=== PATIENT | female | born 1995 | race Caucasian/White ===

== ENCOUNTER 2024-01-06 16:33 | Outpatient (CLI) | payer BC ==
[2024-01-06 17:32] LABS: BASOPHILS # (AUTO) 0.1 X10'3 (0-0.2); BASOPHILS % (AUTO) 0.5 % (0-1); EOSINOPHILS # (AUTO) 0.1 X10'3 (0-0.9); EOSINOPHILS % (AUTO) 0.7 % (0-6); HEMATOCRIT 44.1 % (35.0-45.0); HEMOGLOBIN 15.1 g/dl (12.0-16.0); LYMPHOCYTES # (AUTO) 3.2 X10'3 (1.1-4.8); LYMPHOCYTES % (AUTO) 22.5 % (21-51); MEAN CORPUSCULAR HEMOGLOBIN 32.3 PG (27.0-31.0); MEAN CORPUSCULAR HGB CONC 34.3 g/dL (33.0-36.5); MEAN CORPUSCULAR VOLUME 94.1 FL (78-98); MEAN PLATELET VOLUME 8.8 FL (7.4-10.4); MONOCYTES # (AUTO) 0.9 X10'3 (0-0.9); NEUTROPHILS # (AUTO) 9.9 X10'3 (1.8-7.7); NEUTROPHILS % (AUTO) 70.3 % (42-75); PLATELET COUNT 261 X10'3 (140-440); RED BLOOD COUNT 4.69 X10'6 (4.20-5.60); RED CELL DISTRIBUTION WIDTH 13.8 % (11.5-14.5); WHITE BLOOD COUNT 14.1 X10'3 (4.5-11.0)
[2024-01-06 17:37] LABS: HEMOGLOBIN A1C 5.4 % (4.5-6.2)
[2024-01-06 17:55] LABS: ALANINE AMINOTRANSFERASE 30 U/L (12-78); ALBUMIN 3.7 G/DL (3.4-5.0); ALKALINE PHOSPHATASE 80 IU/L (46-116); ANION GAP 7 (8-16); ASPARTATE AMINO TRANSFERASE 16 U/L (10-37); BILIRUBIN,TOTAL 0.5 MG/DL (0.1-1.0); BLOOD UREA NITROGEN 12 MG/DL (7-18); CALCIUM 8.8 MG/DL (8.5-10.1); CHLORIDE 102 MMOL/L (99-107); CHOL/HDL RATIO 5.7 (0.00-4.99); CHOLESTEROL 263 MG/DL (0-200); CREATININE 0.86 MG/DL (0.40-0.90); FREE T4 (FREE THYROXINE) 0.79 NG/DL (0.73-1.40); GLUCOSE 93 MG/DL (70-104); HDL CHOLESTEROL 46 MG/DL (35-60); LDL CHOLESTEROL 182 MG/DL (50-100); POTASSIUM 4.5 MMOL/L (3.5-5.1); SODIUM 137 MMOL/L (135-145); THYROID STIMULATING HORMONE 1.59 ulU/ml (0.34-4.50); TOTAL CARBON DIOXIDE 28.3 MMOL/L (24-32); TOTAL PROTEIN 7.3 G/DL (6.4-8.2); TRIGLYCERIDES 136 MG/DL (20-135); eGFR 78 ML/MIN
== END 2024-01-06 23:59 | disposition home or self-care (01) ==
LOC: RAD 16:33
PROVIDERS: ATTEND Nurse Practitioner
DX: Z13.220 Encounter for screening for lipoid disorders (principal); R53.83 Other fatigue; R73.9 Hyperglycemia, unspecified; E07.9 Disorder of thyroid, unspecified; M79.645 Pain in left finger(s)
CPT/HCPCS: 36415; 73130; 80053; 80061; 83036; 84439; 84443; 85025

== ENCOUNTER 2024-06-05 21:08 | Emergency (ER) | payer BC ==
[~2024-06-05] VITALS: Ht 154.9 cm; Wt 67.3 kg
[2024-06-05 21:37] LABS: URINE HCG NEGATIVE (NEG)
[2024-06-05 21:43] LABS: BILIRUBIN,URINE NEGATIVE (Neg); CLARITY,URINE CLEAR (Clear); COLOR,URINE YELLOW (Yellow); GLUCOSE, URINE NEGATIVE (Neg); KETONES,URINE NEGATIVE (Neg); LEUKOCYTE ESTERASE ,URINE NEGATIVE (Neg); NITRITES, URINE NEGATIVE (Neg); OCCULT BLOOD,URINE NEGATIVE (Neg); PROTEIN,URINE NEGATIVE (Neg); UROBILINOGEN,URINE 0.2 E.U/dL (0.2-1.0)
[2024-06-05 21:46] LABS: BASOPHILS # (AUTO) 0.1 X10'3 (0-0.2); BASOPHILS % (AUTO) 0.7 % (0-1); EOSINOPHILS # (AUTO) 0.1 X10'3 (0-0.9); EOSINOPHILS % (AUTO) 1.3 % (0-6); HEMATOCRIT 42.8 % (35.0-45.0); HEMOGLOBIN 14.7 g/dl (12.0-16.0); LYMPHOCYTES # (AUTO) 3.8 X10'3 (1.1-4.8); LYMPHOCYTES % (AUTO) 38.9 % (21-51); MEAN CORPUSCULAR HEMOGLOBIN 31.8 PG (27.0-31.0); MEAN CORPUSCULAR HGB CONC 34.4 g/dL (33.0-36.5); MEAN CORPUSCULAR VOLUME 92.7 FL (78-98); MONOCYTES # (AUTO) 0.8 X10'3 (0-0.9); MONOCYTES % (AUTO) 8.3 % (2-12); NEUTROPHILS # (AUTO) 4.9 X10'3 (1.8-7.7); NEUTROPHILS % (AUTO) 50.8 % (42-75); PLATELET COUNT 233 X10'3 (140-440); RED BLOOD COUNT 4.61 X10'6 (4.20-5.60); WHITE BLOOD COUNT 9.7 X10'3 (4.5-11.0)
[2024-06-05 21:48] LABS: UA COLLECTION TYPE CLN CATCH MIDSTREAM
[2024-06-05 22:30] LABS: ALANINE AMINOTRANSFERASE 22 U/L (12-78); ALBUMIN 3.6 G/DL (3.4-5.0); ALBUMIN/GLOBULIN RATIO 1.3 (1.1-1.5); ALKALINE PHOSPHATASE 76 IU/L (46-116); ANION GAP 9 (8-16); ASPARTATE AMINO TRANSFERASE 15 U/L (10-37); BILIRUBIN,TOTAL 0.3 MG/DL (0.1-1.0); BLOOD UREA NITROGEN 10 MG/DL (7-18); CALCIUM 8.6 MG/DL (8.5-10.1); CHLORIDE 107 MMOL/L (99-107); CREATININE 0.77 MG/DL (0.40-0.90); GLUCOSE 82 MG/DL (70-104); POTASSIUM 3.8 MMOL/L (3.5-5.1); SODIUM 141 MMOL/L (135-145); TOTAL PROTEIN 6.4 G/DL (6.4-8.2); eCRCL 81 ML/MIN; eGFR 89 ML/MIN
[2024-06-05 22:35] LABS: LIPASE 25 U/L (16-77)
[2024-06-05] MEDS ORDERED: PRED50TA PO (22:42)
[2024-06-05 22:57] VITALS: BP 130/78; PULSE 59; RESP 18; TEMP 98.3; O2SAT 97
== END 2024-06-05 23:00 | disposition home or self-care (01) ==
LOC: ER 21:09
DX: M54.17 Radiculopathy, lumbosacral region (principal)
CPT/HCPCS: 36415; 80053; 81003; 81025; 83690; 85025; 99283

== ENCOUNTER 2024-07-19 21:15 | Emergency (ER) | payer BC ==
[~2024-07-19] VITALS: Ht 154.9 cm; Wt 64.2 kg
[~2024-07-19 21:15] MED LIST: PRED50TA PO
[2024-07-19 21:20] VITALS: BP 139/77; PULSE 65; TEMP 97.4; O2SAT 98
[2024-07-19] MEDS ORDERED: HYDR-3973 PO (22:20)
[2024-07-19] MEDS ORDERED: AMOX-580 PO (22:20)
--- NOTE | 2024-07-19 22:22 | Physician Documentation ---
History of Present Illness ~ Chief Complaint: Sore Throat Stated Complaint: SORE THROAT Time Seen by MD: 21:28 HPI 29-year-old female reports a chief complaint of sore throat. Patient states she has been exposed to strep throat recently she states she has pustules and redne ss to her throat. Currently denies fevers or chills. Denies cough. Endorses pain with swallowing. No other complaints at this time Medication Reconciliation Allergies: Coded Allergies: No Known Allergies (Unverified , 07/19/24) Scheduled Prednisone (Prednisone), 1 TAB PO DAILY Physical Exam Vital Signs: Temperature: 97.4, Source: Temporal, Heart Rate: 65, Respiratory Rate: 18, BP: 139/77, Pulse Oximetry: 98, Weight: 64.200 Oxygen Flow Rate: 0 Physical Exam General: Well developed, well nourished, no distress. HEENT: Tonsils are positive for swelling with exudates bilaterally with 2+ edema. Positive for posterior pharynx erythema. Positive LAD bilaterally. Uvula is midline negative for edema Neck: Full range of motion, supple. Respiratory: Lungs clear, no respiratory distress. Chest: No accessory muscle use, nontender. Cardiovascular: Regular rate and rhythm. Gastrointestinal: Soft, nontender, nondistended. Bowel sounds present. Extremities: Normal range of motion, nontender, normal capillary refill, no deformity. Back: No midline tenderness, no CVA tenderness. Neurologic: Oriented x4. Distal gross motor and sensory intact all four extremities. Moves all 4 extremities spontaneously. Psychiatric: Normal mood and affect. Skin: Normal color, warm and dry. No edema, no ecchymosis Progress Results/Orders Results/Orders Completed Orders - JIM LATHAM Hydrocodone/Apap 10/325 ([place] 10/325mg (07/19/24 21:30) Ondansetron Disint. Tablet (Zofran Odt T (07/19/24 21:30) Ketorolac Trometh 30mg/Ml Vial (Toradol (07/19/24 21:30) Dexamethasone Inj (Decadron 10mg/Ml Inj) (07/19/24 21:29) Vital Signs 07/19/24 21:20 Temp 97.4 Pulse 65 Resp 18 B/P (MAP) 139/77 Pulse Ox 98 O2 Flow Rate 0 Medical Decision Making Additional info obtained from: old records Findings After detailed discussion jet medical decision-making, diagnostic imaging re sults were discussed with patient. At this time patient does not have symptoms consistent with strep throat. Patient is given Augmentin given Toradol and Decadron ED and discharged with medication for pain. Patient advised follow up primary care. ER precautions were given. Patient is stable upon discharge. All patient questions answered to satisfaction Ear Diff. Dx: Considerations: Include: Other (Strep throat, viral pharyngitis, diphtheria) Departure Disposition: HOME / SELF CARE / HOMELESS Impression: Primary Impression: Sore throat Additional Impressions: Pharyngitis Swelling of tonsil Condition: Stable Discharge Instructions: Tonsillitis, Strep Throat, Adult Referrals: NO PRIMARY CARE PROVIDER (PCP) Prescriptions Hydrocodone Bit/Acetaminophen (Hydrocodone-Apap 10-325 Tablet) 10mg/325mg Tablet 1 TAB PO QID PRN PRN for pain for 5 Days, #30 TAB Prov: JIM LATHAM 07/19/24 Amox Tr/Potassium Clavulanate 875/125 MG (Augmentin 875/125 MG) 875 Mg-125 Mg Tablet 1 TAB PO Q12H for 10 Days, #20 TAB Prov: JIM LATHAM 07/19/24 Education Educated: Patient Educated regarding: diagnosis, treatment Signature Scribe Signature: none used Attestation: Scribed for Jim Latham by Jim GOMEZ . 07/19/24 22:21 JIM LATHAM July 19, 2024 22:22
[2024-07-19] MEDS: dexamethasone sod phosphate 10mg/ml inj PO STA (23:39)
[2024-07-19] MEDS: ondansetron 4mg rapidly disintigrating tab PO ONE (23:39)
[2024-07-19] MEDS: ketorolac trometh 30MG/ML vial 30 MG/ML VIAL IM ONE (23:39)
[2024-07-19 23:40] VITALS: RESP 14
[2024-07-19] MEDS: HYDROcodone/acetaminophen 10/325mg tab PO ONE (23:40)
== END 2024-07-19 23:56 | disposition home or self-care (01) ==
LOC: ER 21:15
DX: J02.9 Acute pharyngitis, unspecified (principal); R22.1 Localized swelling, mass and lump, neck; Z79.899 Other long term (current) drug therapy
CPT/HCPCS: 96372; 99284; J1100; J1885

== ENCOUNTER 2024-07-23 19:07 | Emergency (ER) | payer BC ==
[~2024-07-23] VITALS: Ht 154.9 cm; Wt 65.9 kg
[~2024-07-23 19:07] MED LIST changes: +AMOX-580 PO; +HYDR-3973 PO
[2024-07-23] MEDS ORDERED: dexamethasone sod phosphate 10mg/ml inj PO STA (19:44)
--- NOTE | 2024-07-23 19:48 | Physician Documentation ---
History of Present Illness ~ Chief Complaint: Flu Symptoms Stated Complaint: "I AM SICK" Time Seen by MD: 19:39 OK to notify your PCP?: No HPI 29 Year old female presents to the ED after recently being empirically prescribed antibiotics pain pills for suspected strep throat. States that initially she felt better but has now feels like she has gotten worse.. Has not been tested for strep throat at this time.. Reports having a cough.denies fever Day of Onset: July 23, 2024 Medication Reconciliation Allergies: Coded Allergies: No Known Allergies (Unverified , 07/19/24) Scheduled Amox Tr/Potassium Clavulanate 875/125 MG (Augmentin 875/125 MG), 1 TAB PO Q12H Prednisone (Prednisone), 1 TAB PO DAILY Scheduled PRN Hydrocodone Bit/Acetaminophen (Hydrocodone-Apap 10-325 Tablet), 1 TAB PO QID PRN PRN for pain Review of Systems All Other Systems at this time: Reviewed and Negative ROS As stated above in the HPI, otherwise all systems are reviewed and negative. Physical Exam Vital Signs: Temperature: 99.0, Source: Oral, Heart Rate: 83, Respiratory Rate: 16, BP: 128/92, Pulse Oximetry: 97, Weight: 65.910 Oxygen Flow Rate: 0 Physical Exam General: Alert, no apparent distress. HEENT: PERRL, EOMI, no injection, moist mucous membranes. Plain pharynx no signs of exudate Neck: Full range of motion. Respiratory: Lungs clear, no respiratory distress. Progress Results/Orders Results/Orders Orders - SEE GONZALEZ FORM PRESS OPERATOR Cult Throat + R/O Beta Strep (07/23/24 20:01) Completed Orders - SEE GONZALEZ FORM PRESS OPERATOR Strep A Rapid (07/23/24 19:44) Dexamethasone Tablet (Decadron Tablet) (07/23/24 19:46) Dexamethasone 6mg Tablet (Dexamethasone (07/23/24 19:47) Vital Signs 07/23/24 19:10 Temp 99.0 Pulse 83 Resp 16 B/P (MAP) 128/92 Pulse Ox 97 O2 Flow Rate 0 Laboratory Tests Test 07/23/24 19:47 Group A Streptococcus Rapid Negative Medical Decision Making Findings Currently suspected viral pharyngitis as the primary cause of patient's symptoms and not strep throat. However a want to rule it out via strep swab. More than likely going to prescribe dexamethasone to help with her symptoms. Advised her to increase fluid and rest for Differential Dx:Considerations: Include: Allergic rhinitis, Influenza, Otitis media, Peritonsillar abscess, Pharyngitis-Diphtheria, Pharyngitis-Streptoccal, Pharyngitis-Viral, Pneumonia, Pnuemonitis, Sinusitis, URI, Other Departure Disposition: 01 HOME / SELF CARE / HOMELESS Impression: Primary Impression: Viral infection Condition: Improved Discharge Instructions: Viral Illness Referrals: NO PRIMARY CARE PROVIDER (PCP) Signature Scribe Signature: h Attestation: The note accurately reflects work and decisions made by me.See Gonzalez - KEESHA 07/23/24 19:47 SEE GONZALEZ FORM PRESS OPERATOR July 23, 2024 19:48
[2024-07-23 20:01] LABS: STREP A SCREEN NEGATIVE (Neg)
[2024-07-23] MEDS: dexamethasone 4mg tablet PO STA (20:08)
[2024-07-23] MEDS: DEXAMETHASONE 6 MG TABLET PO STA (20:08)
[2024-07-23 20:18] VITALS: BP 126/90; PULSE 80; RESP 16; TEMP 99.4; O2SAT 99
== END 2024-07-23 20:25 | disposition home or self-care (01) ==
LOC: ER 19:08
DX: B34.9 Viral infection, unspecified (principal); Z79.899 Other long term (current) drug therapy
CPT/HCPCS: 87081; 87880; 99283; J8540

== ENCOUNTER 2024-10-11 09:12 | Emergency (ER) | payer BC ==
[~2024-10-11] VITALS: Ht 154.9 cm; Wt 64.5 kg
[~2024-10-11 09:12] MED LIST changes: -AMOX-580 PO; -HYDR-3973 PO
[2024-10-11 09:14] VITALS: BP 117/53; PULSE 72; RESP 18; TEMP 97.7; O2SAT 97
--- NOTE | 2024-10-11 09:35 | Physician Documentation ---
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 She reports that she has been off the last couple of weeks, and then developed a rash and just in the last couple of days. The rash is itchy and located in the right side of the body. She has been swimming in the [place], that has also had some potential exposure to poison oak. No airway issues, no shortness a breath, no difficulty swallowing. No fevers, chills, nausea, vomiting. Medication Reconciliation Allergies: Coded Allergies: No Known Allergies (Unverified , 07/19/24) Scheduled Hydroxyzine Hcl* (Atarax*), 1 TAB PO HS Prednisone (Prednisone), 1 TAB PO DAILY Prednisone (Prednisone), 1 TAB PO DAILY Triamcinolone Acetonide 0.5% Crm* (Kenalog 0.5% Crm*), 1 APPLIC TOP Q12H Review of Systems ROS As stated above in the HPI, otherwise all systems are reviewed and negative. Physical Exam Vital Signs: Temperature: 97.7, Heart Rate: 72, Respiratory Rate: 18, BP: 117/53, Pulse Oximetry: 97, Weight: 64.550 Oxygen Flow Rate: 0 Physical Exam General: Alert, no apparent distress. HEENT: PERRL, EOMI, no injection, moist mucous membranes. Neck: Full range of motion. Respiratory: Lungs clear, no respiratory distress. Chest: No accessory muscle use. Cardiovascular: Regular rate and rhythm, no murmurs. Gastrointestinal: Soft, nontender, nondistended. Bowels sounds present. Extremities: Normal range of motion, no deformity. Neurologic: Oriented x4. Psychiatric: Normal mood and affect. Skin: Normal color, warm and dry. No edema, no ecchymosis. Maculopapular rash to the right flank and buttock. Progress Results/Orders Results/Orders Vital Signs 10/11/24 09:14 Temp 97.7 Pulse 72 Resp 18 B/P (MAP) 117/53 Pulse Ox 97 O2 Flow Rate 0 Medical Decision Making Additional Comment Well-appearing 29-year-old female with no medical problems. She has a patent airway, we will be treated with prednisone 50 mg daily x5 days and hydroxyzine as needed for itching. She will also be sent with triamcinolone cream for b.i.d. p.r.n. use. Return if worse. Departure Time of Disposition: 09:50 Disposition: 01 HOME / SELF CARE / HOMELESS Impression: Primary Impression: Allergic contact dermatitis Condition: Stable Discharge Instructions: Contact Dermatitis Additional Instructions: Take the prescribed medications. Return if worse. In the future, cool shower with tecnu or jazmyn dish soap after potential exposure to poison oak or other substances. Referrals: NO PRIMARY CARE PROVIDER (PCP) Prescriptions Triamcinolone Acetonide 0.5% Crm* (Kenalog 0.5% Crm*) 15 Gm Tube 1 APPLIC TOP Q12H for 30 Days, #15 GM apply to affected area(s) Prov: DAVE FLORES NP 10/11/24 Hydroxyzine Hcl* (Atarax*) 25 Mg Tablet 1 TAB PO HS for itching for 10 Days, #10 TAB Prov: DAVE FLORES NP 10/11/24 Prednisone (Prednisone) 50 Mg Tablet 1 TAB PO DAILY for 5 Days, #5 TAB 0 Refills Prov: DAVE FLORES NP 10/11/24 Education Educated: Patient, Family Educated regarding: diagnosis, treatment, prognosis, need for follow up Signature Scribe Signature: x Attestation: The note accurately reflects work and decisions made by me.Dave Hood NP 10/11/24 09:57 DAVE FLORES NP Oct 11, 2024 09:35
[2024-10-11] MEDS ORDERED: HYDR-3686 PO (09:52)
[2024-10-11] MEDS ORDERED: TRIA15CR61 TOP (09:52)
[2024-10-11] MEDS ORDERED: PRED50TA PO (09:52)
== END 2024-10-11 10:00 | disposition home or self-care (01) ==
LOC: ER 09:13
DX: L23.89 Allergic contact dermatitis due to other agents (principal); Z79.899 Other long term (current) drug therapy
CPT/HCPCS: 99283